=== PATIENT | female | born 1940 | race Caucasian/White ===

== ENCOUNTER 2017-05-28 11:48 | Inpatient (IN) | payer OTHER, MEDICAID ==
[~2017-05-28] VITALS: Ht 162.6 cm; Wt 71.8 kg
[2017-05-28] MEDS ORDERED: IPRATROPIUM/ALBUTEROL SULFATE 3 ML SOLUTION IH ONE ×4 (11:59→17:04)
[2017-05-28] MEDS ORDERED: METHYLPREDNISOLONE SOD SUCC 125MG/2ML VIAL ONE (12:15)
[2017-05-28] MEDS ORDERED: MAGNESIUM 2GM PREMIX 50ML 50 ML IV ONE (12:15)
[2017-05-28 12:21] LABS: BASOPHILS % (AUTO) 1.5 % (0.0-5.0); HEMATOCRIT 37.1 % (36-48); LYMPHOCYTES % (AUTO) 20.3 % (21.0-51.0); MEAN CORPUSCULAR HEMOGLOBIN 25.5 pg (27.0-33.0); MEAN CORPUSCULAR HGB CONC 32.3 g/dL (32.0-36.0); MEAN CORPUSCULAR VOLUME 78.9 fL (79-99); MONOCYTES % (AUTO) 13.2 % (3.0-13.0); NUCLEATED RED BLOOD CELLS 0.1 % (0.0-0.19); PLATELET COUNT (AUTO) 520 K/uL (130-400); RED BLOOD CELL COUNT(AUTO) 4.71 MIL/uL (4.00-5.50); RED CELL DISTRIBUTION WIDTH 17.2 % (11.0-15.5); WHITE BLOOD COUNT (AUTO) 8.3 K/uL (4.8-10.8)
[2017-05-28 12:33] LABS: POTASSIUM 3.7 mmol/L (3.5-5.1)
[2017-05-28 12:47] LABS: B-TYPE NATRIURETIC PEPTIDE 235 pg/mL (0-100)
[2017-05-28 12:52] LABS: ALBUMIN 3.1 g/dL (3.5-5.0); BILIRUBIN,TOTAL 0.3 mg/dL (0.2-1.0); CREATINE KINASE MB 4.3 ng/mL (0.5-3.6); TOTAL PROTEIN, SERUM 7.2 g/dL (6.0-8.3)
[2017-05-28 13:19] LABS: ABG BASE EXCESS 0.4 mmol/L (-2.0-3.0); ABG HCO3 29.2 mmol/L (21.0-28.0); ABG OXYGEN SATURATION 99.6 % (95.0-99.0); ABG PCO2 66 mmHg (32-45)
[2017-05-28] MEDS ORDERED: LEVOFLOXACIN 750 MG/D5W 150 ML 150 ML ONE (14:22)
[2017-05-28] MEDS ORDERED: LACTULOSE 20 GM/30 ML UDCUP PO PRN (19:45)
[2017-05-28] MEDS ORDERED: DiphenhydrAMINE HCL 50 MG/ML VIAL IV PRN (19:45)
[2017-05-28] MEDS ORDERED: CLONIDINE HCL 0.1 MG TABLET PO PRN (19:45)
[2017-05-28] MEDS ORDERED: DIPHENHYDRAMINE HCL 25 MG CAPSULE PO PRN (19:45)
[2017-05-28] MEDS ORDERED: NITROGLYCERIN 0.4 MG SL TAB SL PRN (19:45)
[2017-05-28] MEDS ORDERED: ZOLPIDEM TARTRATE 5 MG TAB PO PRN (19:45)
[2017-05-28] MEDS ORDERED: LEVOFLOXACIN 500 MG/D5W 100 ML 100 ML IV SCH (19:45)
[2017-05-28] MEDS ORDERED: ACETAMINOPHEN 325 MG TAB PO PRN ×2 (19:45)
[2017-05-28 19:56] VITALS: BP 115/54
[2017-05-28] MEDS ORDERED: POTASSIUM CHLORIDE 20MEQ/100ML 100 ML IV PRN (20:00)
[2017-05-28] MEDS ORDERED: GUAIFENESIN SUGAR-FREE 100 MG/5 ML UDCUP PO PRN (20:00)
[2017-05-28] MEDS ORDERED: GLUCAGON 1MG KIT 1 MG ML IM PRN (20:00)
[2017-05-28] MEDS ORDERED: LIDOCAINE HCL-MPF 1% 2ML VIAL IVP PRN (20:00)
[2017-05-28] MEDS ORDERED: POTASSIUM CHLORIDE 20 MEQ ERTAB PO PRN (20:00)
[2017-05-28] MEDS ORDERED: DEXTROSE 50%-WATER 50 ML DISP.SYRIN IV PRN (20:00)
[2017-05-28] MEDS ORDERED: POTASSIUM CHLORIDE 10% ELIXIR 20 MEQ/15 ML UDCUP PO PRN (20:00)
[2017-05-28] MEDS ORDERED: MAG HYDROX/AL HYDROX/SIMETH ES 30 ML SUSP UDCUP PO PRN (20:00)
[2017-05-28] MEDS: INSULIN HUMULIN R 100 UNIT/ML 3ML SQ SCH (21:00)
[2017-05-28] MEDS: IPRATROPIUM/ALBUTEROL SULFATE 3 ML SOLUTION IH SCH (22:04)
[2017-05-28] MEDS: METHYLPREDNISOLONE SOD SUCC 125MG/2ML VIAL IVP SCH (22:52)
[2017-05-29] VITALS (7 sets, daily range): BP systolic 93–113; BP diastolic 44–58
[2017-05-29] MEDS: ONDANSETRON HCL 4 MG/2 ML VIAL IVP PRN (01:26)
[2017-05-29] MEDS: IPRATROPIUM/ALBUTEROL SULFATE 3 ML SOLUTION IH SCH ×6 (02:28→21:28)
[2017-05-29] MEDS: METHYLPREDNISOLONE SOD SUCC 125MG/2ML VIAL IVP SCH ×3 (04:38→20:51)
[2017-05-29 04:52] LABS: ABG BASE EXCESS 4.5 mmol/L (-2.0-3.0); ABG HCO3 31.9 mmol/L (21.0-28.0); ABG OXYGEN SATURATION 67.2 % (95.0-99.0); ABG PCO2 59 mmHg (32-45)
[2017-05-29 04:53] LABS: HEMATOCRIT 31.2 % (36-48); MEAN CORPUSCULAR HEMOGLOBIN 27.4 pg (27.0-33.0); MEAN CORPUSCULAR HGB CONC 34.9 g/dL (32.0-36.0); MEAN CORPUSCULAR VOLUME 78.6 fL (79-99); PLATELET COUNT (AUTO) 429 K/uL (130-400); RED BLOOD CELL COUNT(AUTO) 3.97 MIL/uL (4.00-5.50); RED CELL DISTRIBUTION WIDTH 16.8 % (11.0-15.5); WHITE BLOOD COUNT (AUTO) 3.5 K/uL (4.8-10.8)
[2017-05-29 05:12] LABS: BAND NEUTROPHILS % (MANUAL) 2 % (0-2); LYMPHOCYTES % (MANUAL) 9 % (22-44); MAN.DIFF COMMENT-IMPRESSION MANUAL DIFFERENTIAL; MONOCYTES % (MANUAL) 1 % (2-9); PLATELET MORPHOLOGY COMMENT SLIGHT INCREASED; SEGMENTED NEUTROPHILS % 88 % (40-70)
[2017-05-29 05:14] LABS: ALBUMIN 2.6 g/dL (3.5-5.0); BILIRUBIN,TOTAL 0.2 mg/dL (0.2-1.0); CREATININE 1.5 mg/dL (0.5-1.5); POTASSIUM 4.1 mmol/L (3.5-5.1); TOTAL PROTEIN, SERUM 6.4 g/dL (6.0-8.3)
[2017-05-29] MEDS: INSULIN HUMULIN R 100 UNIT/ML 3ML SQ SCH ×4 (06:20→20:55)
[2017-05-29] MEDS: LORAZEPAM 1 MG TABLET PO PRN (08:47)
[2017-05-29] MEDS ORDERED: QUET50TA55 PO (08:57)
[2017-05-29] MEDS ORDERED: LORA1TAB3 PO (08:57)
[2017-05-29] MEDS ORDERED: ESCI10TA PO (08:57)
[2017-05-29] MEDS ORDERED: SIMV40TA5 PO (09:02)
[2017-05-29] MEDS ORDERED: FOLI1TAB15 PO (09:02)
[2017-05-29] MEDS ORDERED: PROC10TA13 PO (09:02)
[2017-05-29] MEDS ORDERED: LOSA100T29 PO (09:02)
[2017-05-29] MEDS ORDERED: METO100T14 PO (09:02)
[2017-05-29] MEDS ORDERED: FURO20TA4 PO (09:02)
[2017-05-29] MEDS ORDERED: ASPI-555 PO (09:02)
[2017-05-29] MEDS: NICOTINE 14 MG/ 24 HR PATCH TD SCH (11:22)
[2017-05-29 12:57] LABS: ABG BASE EXCESS 1.7 mmol/L (-2.0-3.0); ABG HCO3 29.2 mmol/L (21.0-28.0); ABG OXYGEN SATURATION 60.4 % (95.0-99.0); ABG PCO2 57 mmHg (32-45)
[2017-05-29] MEDS: GUAIFENESIN-DM 200/20 MG 10 ML PO PRN ×2 (13:07→20:58)
[2017-05-29] MEDS: LEVOFLOXACIN 500 MG/D5W 100 ML 100 ML IV SCH (13:08)
[2017-05-29] MEDS: LORAZEPAM 2 MG/ML 1 ML VIAL IVP PRN (13:08)
[2017-05-29] MEDS ORDERED: IOPAMIDOL-370 75 ML VIAL IV ONE (15:27)
[2017-05-30] MEDS: IPRATROPIUM/ALBUTEROL SULFATE 3 ML SOLUTION IH SCH ×6 (01:46→21:58)
[2017-05-30 03:25] VITALS: BP 137/60
[2017-05-30] MEDS: LORAZEPAM 1 MG TABLET PO PRN ×2 (03:41→09:56)
[2017-05-30] MEDS: METHYLPREDNISOLONE SOD SUCC 125MG/2ML VIAL IVP SCH ×3 (05:08→20:15)
[2017-05-30] MEDS: INSULIN HUMULIN R 100 UNIT/ML 3ML SQ SCH ×4 (06:17→20:18)
[2017-05-30 07:49] VITALS: BP 105/56
[2017-05-30] MEDS: NICOTINE 14 MG/ 24 HR PATCH TD SCH (09:50)
[2017-05-30 11:20] VITALS: BP 120/54
[2017-05-30] MEDS: ONDANSETRON HCL 4 MG/2 ML VIAL IVP PRN (12:22)
[2017-05-30 16:26] VITALS: BP 124/61
[2017-05-30] MEDS: LEVOFLOXACIN 500 MG/D5W 100 ML 100 ML IV SCH (16:48)
[2017-05-30 19:44] VITALS: BP 104/53
[2017-05-30 23:47] VITALS: BP 128/63
[2017-05-31] MEDS: IPRATROPIUM/ALBUTEROL SULFATE 3 ML SOLUTION IH SCH ×4 (03:00→13:57)
[2017-05-31 03:38] VITALS: BP 131/72
[2017-05-31 03:51] LABS: HEMATOCRIT 31.5 % (36-48); LYMPHOCYTES % (AUTO) 2.9 % (21.0-51.0); MEAN CORPUSCULAR HEMOGLOBIN 25.7 pg (27.0-33.0); MEAN CORPUSCULAR HGB CONC 32.7 g/dL (32.0-36.0); MEAN CORPUSCULAR VOLUME 78.6 fL (79-99); MONOCYTES % (AUTO) 5.5 % (3.0-13.0); NEUTROPHILS % (AUTO) 91.6 % (40.0-77.0); PLATELET COUNT (AUTO) 413 K/uL (130-400); RED BLOOD CELL COUNT(AUTO) 4.01 MIL/uL (4.00-5.50); RED CELL DISTRIBUTION WIDTH 17.4 % (11.0-15.5); WHITE BLOOD COUNT (AUTO) 9.3 K/uL (4.8-10.8)
[2017-05-31 03:59] LABS: ALBUMIN 2.7 g/dL (3.5-5.0); BILIRUBIN,TOTAL 0.2 mg/dL (0.2-1.0); CREATININE 0.9 mg/dL (0.5-1.5); POTASSIUM 3.8 mmol/L (3.5-5.1); TOTAL PROTEIN, SERUM 6.1 g/dL (6.0-8.3)
[2017-05-31] MEDS: METHYLPREDNISOLONE SOD SUCC 125MG/2ML VIAL IVP SCH ×2 (05:36→12:33)
[2017-05-31] MEDS: INSULIN HUMULIN R 100 UNIT/ML 3ML SQ SCH ×2 (05:36→12:35)
[2017-05-31] MEDS: LORAZEPAM 2 MG/ML 1 ML VIAL IVP PRN (06:28)
[2017-05-31 07:31] VITALS: BP 122/88
[2017-05-31] MEDS: GUAIFENESIN-DM 200/20 MG 10 ML PO PRN (09:32)
[2017-05-31] MEDS: LORAZEPAM 1 MG TABLET PO PRN (09:32)
[2017-05-31] MEDS: NICOTINE 14 MG/ 24 HR PATCH TD SCH (10:02)
[2017-05-31 11:27] VITALS: BP 100/64
[2017-05-31] MEDS: LEVOFLOXACIN 500 MG/D5W 100 ML 100 ML IV SCH (12:37)
[2017-05-31 15:40] VITALS: BP 108/63
== END 2017-05-31 16:45 | disposition hospice, home (50) | DRG 189 ==
LOC: EDH 11:48 → EDHIP 13:45 → 2AH 18:40
PROVIDERS: ADMIT Family Medicine; ATTEND Family Medicine
PROC: 5A09357 Assistance with Respiratory Ventilation, Less than 24 Consecutive Hours, Continuous Positive Airway Pressure (ICD-10-PCS; principal; 2017-05-28)
PROC: 5A09357 Assistance with Respiratory Ventilation, Less than 24 Consecutive Hours, Continuous Positive Airway Pressure (ICD-10-PCS; 2017-05-29)
PROC: 5A09357 Assistance with Respiratory Ventilation, Less than 24 Consecutive Hours, Continuous Positive Airway Pressure (ICD-10-PCS; 2017-05-30)
DX: J96.00 Acute respiratory failure, unspecified whether with hypoxia or hypercapnia (principal); C34.90 Malignant neoplasm of unspecified part of unspecified bronchus or lung; I11.0 Hypertensive heart disease with heart failure; I50.9 Heart failure, unspecified; J44.9 Chronic obstructive pulmonary disease, unspecified; E78.5 Hyperlipidemia, unspecified; Z51.11 Encounter for antineoplastic chemotherapy
CPT/HCPCS: 36415; 36600; 71010; 71275; 80053; 82550; 82553; 82803; 82948; 83880; 84484; 85025; 93005; 94640; 94660; 94664; 99291; J1956; J2060; J2405; J2930; J3475; Q9967